=== PATIENT | male | born 1985 | race Caucasian/White ===

== ENCOUNTER → 2021-03-12 05:15 | Outpatient (CLI) | payer OTHER, SELFPAY ==
[2021-03-12 19:18] LABS: SARS-CoV-2 RNA PCR Positive
== END ==
PROVIDERS: PCP Nurse Practitioner Family; Visit Provider Nurse Practitioner Family
DX: U07.1 COVID-19 (principal)
CPT/HCPCS: C9803; U0003; U0005

== ENCOUNTER 2021-10-30 15:16 | Emergency (ER) | payer OTHER, SELFPAY ==
[2021-10-30 15:40] VITALS: BP 117/71; PULSE 68; RESP 18; TEMP 36.6; O2SAT 99
--- NOTE | 2021-10-30 16:09 | ED.URI ---
HPI - URI/Sore Throat General Chief Complaint: Upper Respiratory Infection Stated Complaint: Sore Throat Time Seen by Provider: 10/30/21 16:05 Source: patient Mode of arrival: ambulatory Limitations: no limitations History of Present Illness HPI Narrative: Gunnar Pendleton is a 36 yo male with a PMH of anxiety who comes to [facility] otherwise waiting on the right tonsil. States that he does notice it this morning that his throat not particularly sore but that the tonsil appears red and there is a white appearing object in the middle of his right tonsil Related Data Home Medications Medication Instructions Recorded Confirmed escitalopram oxalate 5 mg PO DAILY 10/30/21 10/30/21 Allergies Allergy/AdvReac Type Severity Reaction Status Date / Time No Known Allergies Allergy Unknown Verified 10/30/21 15:54 Review of Systems Review of Systems: CONSTITUTIONAL: Denies fever, chills, sweats. EYES: Denies visual changes, redness, discharge. ENT: Denies rhinorrhea, congestion, sore throat, otalgia. CARDIOVASCULAR: Denies chest pain, palpitations, edema. RESPIRATORY: Denies dyspnea, wheezing, cough GASTROINTESTINAL: Denies abdominal pain, nausea, vomiting, diarrhea. GENITOURINARY: Denies dysuria, hematuria, abnormal discharge SKIN: Denies rash or itching. NEUROLOGIC: Denies numbness, or focal weakness. PSYCHIATRIC: Denies anxiety or depression. Peers to have a stone in his right tonsil PMFSH Past Medical History Medical History Anxiety Social History Social History (Updated 10/30/21 @ 16:14 by Calista Vázquez CNP) Smoking status: Former smoker Comments At time of signature, I agree with nursing past medical, surgical, social and family history. There is no relevant family history pertinent to the presenting complaint. Exam Narrative: GENERAL: This is a well-nourished, well-developed patient, in mild distress. HEAD: normocephalic, atraumatic. EYES: Sclera clear/white. Vision is grossly intact. EARS: External ears normal. Hearing grossly intact. NOSE: External nose normal without nasal discharge, nares without redness, no rhinorrhea. THROAT: Mucous membranes moist, posterior pharynx erythema with white lesion in the right upper tonsil NECK: Neck supple, non-tender CARDIOVASCULAR: Regular rate and rhythm without murmurs, gallops, or rubs. RESPIRATORY: Clear to auscultation. Breath sounds equal bilaterally. No wheezes, rales, or rhonchi. GASTROINTESTINAL: Not performed SKIN: warm, intact with no suspicious lesions or rash, good texture and turgor. NEURO: awake, alert, and oriented to person, place and time. There were no obvious focal neurologic abnormalities. Steady gait EXTREMITIES: Normal range of motion. BACK: Nontender without deformity Course Course Emergency Course: Patient comes with what appears to be a white lesion in his right tonsil strep negative Discussed tonsil stones with patient started on amoxicillin, salt water gargle, brush and floss teeth regularly Level of Care: Express Care Visit Vital Signs Vital signs: Vital Signs Temperature 97.8 F 10/30/21 15:40 Pulse Rate 68 10/30/21 15:40 Respiratory Rate 18 10/30/21 15:40 Blood Pressure 117/71 10/30/21 15:40 Pulse Oximetry 99 10/30/21 15:40 Temperature 97.8 F 10/30/21 15:40 Pulse Rate 68 10/30/21 15:40 Respiratory Rate 18 10/30/21 15:40 Blood Pressure 117/71 10/30/21 15:40 Pulse Oximetry 99 10/30/21 15:40 MDM - URI/Sore Throat Differential Diagnosis Differential diagnosis: Likely upper respiratory infection, sinusitis, viral infection, bronchitis, influenza, pharyngitis and other Lab Data Labs: Strep Screen Presumptive Negative *(Reference Range: Negative)* Critical Care Time Critical Care Time Critical Care Time: No Discharge Plan Discharge Clinical Impression: Tonsil stone P
== END 2021-10-30 16:19 | disposition home or self-care (01) ==
PROVIDERS: Emergency Provider Nurse Practitioner; PCP Nurse Practitioner Family
DX: J35.8 Other chronic diseases of tonsils and adenoids (principal); F41.9 Anxiety disorder, unspecified; Z87.891 Personal history of nicotine dependence
CPT/HCPCS: 87081; 87880; 99213; G0463